=== PATIENT | female | born 1960 | race Caucasian/White ===

== ENCOUNTER → 2022-01-13 | Day surgery (SDC) | payer OTHER ==
[~2022-01-13] VITALS: Ht 163 cm; Wt 77.1 kg
[~2022-01-13] MED LIST: AMLODIPINE BESY10 MG PO; ASCORBIC ACID500 MG PO; ASPIRIN81 MG PO; ATORVASTATIN CA10 MG PO; BIOTIN10000 MC1 PO; BUPROPION XL300 MG PO; CALCIUM WITH V1 EAC1 PO; CALTRATE 600 +1 EACH PO; CENTRUM ADULTS1 EACH PO; CO Q-10200 MG PO; DICLOFENAC SODI75 MG PO; DOCUSATE SODIU100 MG PO; FLAXSEED OIL1000 M1 PO; GLUCOSAMINE1000 MG PO; HCTZ25 MG PO; LIPITOR 10MG TA10 MG PO; LOVAZA1 GM PO; MELOXICAM15 MG PO; MOVE FREE JOIN1 EACH PO; NORVASC 10MG TA10 MG PO; VITAMIN D32000 UNIT PO
== END | disposition home or self-care (01) ==
LOC: FAS 07:08
DX: Z12.11 Encounter for screening for malignant neoplasm of colon (principal); K57.30 Diverticulosis of large intestine without perforation or abscess without bleeding; K59.09 Other constipation; I10 Essential (primary) hypertension; F32.A Depression, unspecified; E78.5 Hyperlipidemia, unspecified; G47.33 Obstructive sleep apnea (adult) (pediatric); J45.909 Unspecified asthma, uncomplicated; M85.80 Other specified disorders of bone density and structure, unspecified site; Z86.010 Personal history of colon polyps; Z88.5 Allergy status to narcotic agent; Z88.2 Allergy status to sulfonamides; Z79.82 Long term (current) use of aspirin
CPT/HCPCS: J2704; J7120